=== PATIENT | male | born 1980 | race African-American/Black ===

== ENCOUNTER 2022-02-12 13:35 | Emergency (ER) | payer OTHER ==
[2022-02-12 13:57] VITALS: BP 140/92; PULSE 89; TEMP 98.1; BMI 28.0
[2022-02-12] MEDS ORDERED: LIDOCAINE HCL 1%, 10 MG/ML (50 mL VIAL) INF ONE (14:14)
[2022-02-12] MEDS ORDERED: LIDOCAINE HCL 1%, 10 MG/ML (20ML VIAL) ONE (14:16)
[2022-02-12] MEDS ORDERED: morphine CARPU-JECT 4 MG/1 ML DISP.SYRIN IVPUSH ONE (14:47)
[2022-02-12] MEDS ORDERED: morphine SULFATE 4 MG/ML VIAL ONE (14:48)
== END 2022-02-12 16:07 | disposition home or self-care (01) ==
LOC: JER 13:35
PROC: 3E033NZ Introduction of Analgesics, Hypnotics, Sedatives into Peripheral Vein, Percutaneous Approach (ICD-10-PCS; principal; 2022-02-12)
DX: N47.2 Paraphimosis (principal)
CPT/HCPCS: 99284-25

== ENCOUNTER 2022-03-23 04:13 | Day surgery (SDC) | payer OTHER ==
[2022-03-18 15:25] VITALS: BMI 31.0
[2022-03-23] MEDS ORDERED: FENTANYL CITRATE/PF 50 MCG/ML VIAL ONE ×3 (14:40→15:24)
[2022-03-23] MEDS ORDERED: PROPOFOL 20 ML ONE ×2 (14:40)
[2022-03-23] MEDS ORDERED: MIDAZOLAM HCL 2 MG/2 ML SINGLE DOSE VIAL ONE (14:40)
[2022-03-23] MEDS ORDERED: ONDANSETRON 4 MG/2 ML VIAL IVPUSH PRN (15:15)
[2022-03-23] MEDS ORDERED: oxyCODONE HCL 5 MG TABLET PO PRN (15:15)
[2022-03-23] MEDS ORDERED: ACETAMINOPHEN 1000 MG/100 ML BAG IVPB ONE ×2 (15:16→16:45)
[2022-03-23] MEDS ORDERED: ceFAZolin SODIUM 1 GM VIAL IVPB ONE (15:20)
[2022-03-23] MEDS ORDERED: LIDOCAINE HCL 1%, 10 MG/ML (20ML VIAL) ONE (15:22)
[2022-03-23] MEDS ORDERED: LIDOCAINE HCL/PF 2% SDV 5ML VIAL ONE (15:25)
[2022-03-23] MEDS ORDERED: DEXAMETHASONE SOD PHOSPHATE 4 MG/1 ML VIAL ONE (15:25)
[2022-03-23] MEDS ORDERED: KETOROLAC TROMETHAMINE 30 MG/1 ML VIAL ONE (15:25)
[2022-03-23] MEDS ORDERED: ceFAZolin SODIUM 1 GM VIAL ONE (15:25)
[2022-03-23] MEDS ORDERED: PHENYLEPHRINE HCL 10 MG/1 ML SINGLE DOSE VIAL ONE ×2 (15:41→16:12)
[2022-03-23] MEDS ORDERED: LIDOCAINE HCL 1%, 10 MG/ML (20ML VIAL) SQ ONE ×2 (16:03)
[2022-03-23] MEDS ORDERED: ACETAMINOPHEN INJECTION 100 ML IVPB ONE (16:38)
[2022-03-23 19:28] VITALS: BP 137/87; PULSE 85; TEMP 97.6
== END 2022-03-23 20:14 | disposition home or self-care (01) ==
LOC: JASU-SURG 04:13
PROVIDERS: ATTEND Urology
PROC: 0VTTXZZ Resection of Prepuce, External Approach (ICD-10-PCS; principal; 2022-03-23 14:00)
DX: N47.2 Paraphimosis (principal)
CPT/HCPCS: 82962; 88304-TC; 94760